=== PATIENT | female | born 1990 | race Caucasian/White ===

== ENCOUNTER → 2019-07-10 | Outpatient (CLI) | payer OTHER ==
[~2019-07-10] MED LIST: PENVK500 PO; PRENATAL TABLE1 EAC2 PO
[2019-07-12 00:09] LABS: CHLAMYDIA TRACHOMATIS, NAA Negative (Negative); NEISSERIA GONORRHOEAE, NAA Negative (Negative)
== END | disposition home or self-care (01) ==
LOC: LAB 11:56 → LAB SHORT 11:56
PROVIDERS: Obstetrics & Gynecology
DX: O26.891 Other specified pregnancy related conditions, first trimester (principal); R30.0 Dysuria
CPT/HCPCS: 87086; 87491; 87591

== ENCOUNTER 2019-07-16 20:21 | Inpatient (IN) | payer OTHER ==
[~2019-07-16] VITALS: Ht 162.6 cm; Wt 58.9 kg
[2019-07-16] MEDS ORDERED: PENVK500 PO (20:50)
[2019-07-16 21:20] LABS: Hematocrit 44.9 % (33.0-51.0); Hemoglobin 14.3 g/dL (11.5-16.0); Mean Corpuscular HGB 27.3 pg (26.0-34.0); Mean Corpuscular HGB Conc 31.8 g/dL (31.5-36.5); Mean Corpuscular Volume 86 fL (80-100); Mean Platelet Volume 9.1 fL (9.1-12.4); Platelet Count 175 K/mm3 (150-400); RDW Coefficient Variation 13.5 % (11.7-14.2); Red Blood Cell Count 5.23 M/mm3 (3.80-5.20); White Blood Cell Count 17.09 K/mm3 (4.00-11.30)
[2019-07-16 21:39] LABS: Alanine Aminotransfer (ALT/SGP 226 U/L (12-78); Albumin, Blood 3.7 g/dL (3.4-5.0); Albumin/Globulin Ratio 0.8 (0.8-1.8); Alk Phos 75 U/L (50-136); Anion Gap 9 mmol/L (6-16); Aspartate Aminotrans (AST/SGOT 86 U/L (12-37); Bilirubin, Total 0.4 mg/dL (0.1-1.0); Blood Urea Nitrogen 10 mg/dL (8-24); Bun/Creatinine Ratio 13.5 (12.0-20.0); CO2, Blood 24 mmol/L (21-32); Calcium, Blood 9.2 mg/dL (8.5-10.1); Chloride, Blood 104 mmol/L (98-108); Creatinine, Blood 0.74 mg/dL (0.40-1.00); Globulin, Blood 4.9 g/dL (2.2-4.0); Glomerular Filtration Rate >60 (60-); Glucose, Blood 102 mg/dL (70-99); Potassium, Blood 3.9 mmol/L (3.5-5.5); Sodium, Blood 137 mmol/L (136-145); Total Protein, Blood 8.6 g/dL (6.4-8.2)
[2019-07-16 21:45] LABS: BASOPHILS ABSOLUTE MAN 0.17 K/mm3 (0.00-0.23); BASOPHILS PERCENT MAN 1 % (0-2); EOSINOPHILS PERCENT MAN 0 % (0-6); LYMPHOCYTES % ATYPICAL MANUAL 21 % (0-0); LYMPHOCYTES ABSOLUTE MAN 11.96 K/mm3 (0.84-5.20); LYMPHOCYTES PERCENT MAN 49 % (21-46); MONOCYTES ABSOLUTE MAN 1.19 K/mm3 (0.16-1.47); MONOCYTES PERCENT MAN 7 % (4-13); NEUTROPHILS ABSOLUTE MAN 3.75 K/mm3 (1.96-9.15); SEG NEUTROPHILS PERCENT MAN 22 % (41-73); TOTAL CELLS COUNTED 100
[2019-07-17] MEDS ORDERED: PRENATAL TABLE1 EAC2 PO (00:27)
--- NOTE | 2019-07-17 00:31 | NUR ---
ADMISSION: PATIENT IS RECIEVED FROM ER VIA WHEEL CHAIR. ABLE TO AMB. TO BATHROOM WITH A STEADY GAIT. VS ARE STABLE, REPORTS THROAT AND MOUTH DISCOMFORT, DENIES NEED OF PAIN MEDICATION. LACTATED RINGERS AT 100 ML/HR IS STARTED. PTAIENT IS ORIENTED TO ROOM AND CALL [facility].
--- NOTE | 2019-07-17 06:40 | NUR ---
SHIFT SUMMARY: PATIENT HAS BEEN SLEEPING WITHOUT COMPLAINT OF PAIN OR NAUSEA. VS ARE STABLE, NO RESPIRATORY DISTRESS OR DUSPNEA OBSERVED IVF ARE INFUSING PER MD ORDER, PATIENT REMAINS NPO.
--- NOTE | 2019-07-17 07:30 | NUR ---
DR SLATER AT THE BEDSIDE CONTACT NUMBER RECIEVED [phone]. PT UNABLE TO SWALLOW HER OWN SALIVA. DR TOOK PICTURES TO SEND TO DR CASTILLO ENT. CONSULT PLACED FOR DR CASTILLO. DR SLATER MADE THE CALL TO THE ANSWERING SERVICE. RECIEVED A CALL FROM HER REQUESTING A CONSULT FOR THE HOSPITALIST SERVICE PT WOULD NEED IVF AND IV ABX. CONSULTED THE HOSPITALIST SERVICE DR CAMACHO NOW THE HOSPITALIST FOR THIS PT.
--- NOTE | 2019-07-17 08:29 | NUR ---
PATIENT DID NOT EAT BREAKFAST THIS SHIFT DUE TO BEING NPO AT THIS TIME.
--- NOTE | 2019-07-17 15:30 | NUR ---
STILL AWAITING DR CASTILLO TO COME AND SEE THE PT. PER DR SLATER SHE BELIEVES HE PLANS TO COME SEE THE PT. CALLED ENT OFFICE, OFFICE IS CLOSED ON SATURDAY. CALLED ANSWERING SERVICE AND REQUESTED THAT DR CASTILLO BE CONTACTED TO SEE IF HE PLANS TO COME SEE THE PT. CALLED BACK AND SPOKE TO COPY ROOM TECHNICIAN NINFA. CALLED DR SLATER. PER DR CASTILLO HE HAD COMMUNICATED WITH HER. DR SLATER STATED SHE IS DEFERING TO THE HOSPITALIST AND WILL BE AVAILABLE FOR OB NEEDS. CALLED DR CAMACHO TO UPDATE HIM AND PROVIDED CONTACT INFO FOR DR SLATER. PPN ORDERED, SPOKE TO DR CAMACHO ABOUT LR, OK TO DC LR ONCE PPN IS STARTED.
--- NOTE | 2019-07-17 18:41 | NUR ---
SHIFT SUMMARY- PER THE RECOMENDATION OF DIETARY PT WAS GIVEN SUCTION ORAL CARE SUPPLIES AND WAS ABLE TO BRUSH HER TEETH. PT HAS BEEN SPITTING HER SALIVA INTO EMESIS BAGS SHE CAN NOT SWALLOW IT. SWAPPED OUT TOOTHBRUSH FOR THE YONKER. PT NOW ABLE TO SUCTION. PT STATED HER NAUSEA IS BETTER WITH THE SUCTION IT SEEMS THAT SHE IS ABLE TO GET MORE OF THE THICK "GOOBERS" OUT, PT STATED THE THICK STUFF SEEMS TO BE MAKING HER GAG. PT HAS BEEN BLOWNIG HER NOSE AND STATED SHE HAS BEEN PRODUCING THICK GREEN SNOT. NOW ORDER FOR PPN RECIEVED AND STARTED. STOPPED FOR A SHORT TIME WHILE IV ABX INFUSED. IV ABX SHOULD BE COMPLETED AT SHIFT CHANGE. PT VITALS. HR HAS BEEN TACHY T/O THE DAY, PT HAS HAD A SLIGHT FEVER THE HIGH WAS 100.1. PT BROKE OUT IN A SWEAT AND WAS GIVEN A PARTIAL SPOUNGE BATH REDUCED BEDDING TO A SHEET TEMP WENT UP TO 100.6. WILL NEED TO CALL DR FOR TYLENOL SUPPOSITORY PT IS 8 WEEKS AND CAN NOT SWALLOW.
[2019-07-18 05:03] LABS: BASOPHILS ABSOLUTE AUTO 0.06 K/mm3 (0.00-0.23); BASOPHILS PERCENT AUTO 1 % (0-2); EOSINOPHILS PERCENT AUTO 0 % (0-6); Hematocrit 36.6 % (33.0-51.0); Hemoglobin 11.8 g/dL (11.5-16.0); Mean Corpuscular HGB 27.4 pg (26.0-34.0); Mean Corpuscular HGB Conc 32.2 g/dL (31.5-36.5); Mean Corpuscular Volume 85 fL (80-100); Mean Platelet Volume 8.8 fL (9.1-12.4); Platelet Count 133 K/mm3 (150-400); RDW Coefficient Variation 13.4 % (11.7-14.2); RDW Standard Deviation 42.1 fL (35.1-46.3); White Blood Cell Count 7.91 K/mm3 (4.00-11.30)
[2019-07-18 05:05] LABS: IMMATURE GRAN ABSOLUTE AUTO 0.02 K/mm3 (0.00-0.10); IMMATURE GRAN PERCENT AUTO 0 % (0-1); LYMPHOCYTES ABSOLUTE AUTO 4.73 K/mm3 (0.84-5.20); LYMPHOCYTES PERCENT AUTO 60 % (21-46); MONOCYTES ABSOLUTE AUTO 0.63 K/mm3 (0.16-1.47); MONOCYTES PERCENT AUTO 8 % (4-13); NEUTROPHILS ABSOLUTE AUTO 2.47 K/mm3 (1.96-9.15); NEUTROPHILS PERCENT AUTO 31 % (41-73)
[2019-07-18 05:24] LABS: Alanine Aminotransfer (ALT/SGP 124 U/L (12-78); Albumin, Blood 2.9 g/dL (3.4-5.0); Albumin/Globulin Ratio 0.7 (0.8-1.8); Alk Phos 50 U/L (50-136); Anion Gap 7 mmol/L (6-16); Aspartate Aminotrans (AST/SGOT 37 U/L (12-37); Bilirubin, Total 0.3 mg/dL (0.1-1.0); Blood Urea Nitrogen 9 mg/dL (8-24); Bun/Creatinine Ratio 14.9 (12.0-20.0); CO2, Blood 25 mmol/L (21-32); Calcium, Blood 7.9 mg/dL (8.5-10.1); Chloride, Blood 104 mmol/L (98-108); Glomerular Filtration Rate >60 (60-); Glucose, Blood 127 mg/dL (70-99); Magnesium, Blood 2.2 mg/dL (1.6-2.4); Phosphorus, Blood 2.7 mg/dL (2.5-4.9); Potassium, Blood 3.6 mmol/L (3.5-5.5); Sodium, Blood 136 mmol/L (136-145); Total Protein, Blood 6.9 g/dL (6.4-8.2); Triglycerides 148 mg/dL (30-140)
--- NOTE | 2019-07-18 06:55 | NUR ---
DIRECTOR PATIENT ACCOUNTING SUMMARY PT A/O X4, INDEPENDENT IN ROOM. PT STILL IS NOT ABLE TO SWALLOW OWN SALIVA. SUCTION BY BEDSIDE. VSS. NO ACUTE CHANGES. DENIES PAIN, SOB. SCD'S ORDERED AND IN PLACE. PT SWEATED THROUGH BED LINEN. ICE PACKS HAS BEEN PROVIDED THROUGHOUT THE NIGHT. PLEASANT AND COOPERATIVE.
[2019-07-18 11:09] LABS: EBV AB VCA, IGG 20.6 U/mL (0.0-17.9); EBV AB VCA, IGM >160.0 U/mL (0.0-35.9); EBV NUCLEAR ANTIGEN AB, IGG <18.0 U/mL (0.0-17.9)
--- NOTE | 2019-07-18 12:39 | NUR ---
PT IV INFILTRATED AREA SWOLLEN NOT RED; SWELLING HAS REDUCED SINCE DC. SPOKE TO DR FELIPE PT WILL BE STAYING IN THE HOSPITAL THROUGH SATURDAY PG MIGHT BE THE BEST ROUT PT HAS IV PPN AND IV ABX AND IS NOT ABLE TO SWALLOW. NEW ORDER FOR CEPACOL LOZENGE RECIEVED. ADMINISTERED ONE LOZENGE AND COACHED PT THROUGH SWALLOWING EVEN THOUGH IT IS PAINFUL TO SEE IF IT WOULD HELP. PT STATED THAT THE LOZENGE MADE IT BETTER. PT CURRENTLY ABLE TO SWALLOW SOME OF HER SALIVA. WILL CTM.
--- NOTE | 2019-07-18 16:30 | NUR ---
SHIFT SUMMARY- PT HAS HAD 2 CEPACOL LOZENGES SHE STATED THAT SHE CAN SWALLOW HER SALIVA NOW. MAY BE ABLE TO ADVANCE TO CLEAR LIQUIDS TOMORROW IF PT CONTINUES TO IMPROVE. PT CURRENTLY ON IV NUTRITION. PT STATED IT MADE HER ARM A LITTLE SORE. IV WENT BAD AND WAS REMOVED. A NEW POWER GLIDE WAS PLACED. PT STATES THAT HER ARM HURTS WITH THE INFUSION BUT IT IS TOLLERABLE. PG FLUSHES WELL AND IS OTHERWISE NOT UNCOMFORTABLE (PER PT). PT HAS DENIED ANY INCREASE IN DIFICULTY BREATHING AT THIS TIME. PT ON ROOM AIR SATS UPPER 90'S. TEMP TAKEN ORALLY AND LAST CHECK WAS 98.6. PT WAS A BIT FLUSHED AND SWEATING, TURNED DOWN THE ROOM TEMP AND REMOVED BLANKET. PROVIDED PT WITH ICEPACKS FOR HER COMFORT. TEMP HAS BEEN 98.6 WHEN THE PT CALLS TO TELL STAFF SHE FEELS EXTREMELY HOT. NO TEMP READINGS OVER 101. PT NO LONGER NEEDING SUCTION SHE CAN SWALLOW HER SALIVA AT THIS TIME.
[2019-07-19 06:13] LABS: Hematocrit 37.5 % (33.0-51.0); Hemoglobin 12.1 g/dL (11.5-16.0); Mean Corpuscular HGB 27.4 pg (26.0-34.0); Mean Corpuscular HGB Conc 32.3 g/dL (31.5-36.5); Mean Corpuscular Volume 85 fL (80-100); Mean Platelet Volume 9.6 fL (9.1-12.4); Platelet Count 124 K/mm3 (150-400); RDW Coefficient Variation 13.3 % (11.7-14.2); RDW Standard Deviation 41.6 fL (35.1-46.3); Red Blood Cell Count 4.41 M/mm3 (3.80-5.20); White Blood Cell Count 9.32 K/mm3 (4.00-11.30)
[2019-07-19 06:25] LABS: Magnesium, Blood 2.6 mg/dL (1.6-2.4); Phosphorus, Blood 4.1 mg/dL (2.5-4.9)
[2019-07-19 06:37] LABS: BASOPHILS PERCENT MAN 0 % (0-2); EOSINOPHILS PERCENT MAN 0 % (0-6); LYMPHOCYTES ABSOLUTE MAN 6.43 K/mm3 (0.84-5.20); LYMPHOCYTES PERCENT MAN 69 % (21-46); MONOCYTES ABSOLUTE MAN 0.55 K/mm3 (0.16-1.47); MONOCYTES PERCENT MAN 6 % (4-13); NEUTROPHILS ABSOLUTE MAN 2.33 K/mm3 (1.96-9.15); SEG NEUTROPHILS PERCENT MAN 25 % (41-73); TOTAL CELLS COUNTED 100
--- NOTE | 2019-07-19 07:30 | NUR ---
ASSUMED CARE OF PT- PT ALERT AND ORIENTED INDEPENDENT IN THE ROOM. AT THE START OF SHIFT PT STATED SEVERE NAUSEA, HER GOWN AND LINNENS WERE WET FROM SWEAT. MEDICATED WITH ZOFRAN PER EMAR. PT WAS ASSISTED WITH SET UP FOR A SHOWER, LINNENS CHANGED. LUNG SOUNDS A LITTLE COARSE AND PT HAS DIFFICULTY COUGHING TO CLEAR IT MEDICATED PT WHEN CEPACOL WAS AVAILABLE AND ENCOURAGED HER TO COUGH TO TRY TO CLEAR. SPOKE TO AND SHE IS AWARE. PT STATED SHE WAS ABLE TO TPIT OUT A LARGE CHUNK OF "STUFF" FROM THE BACK OF HER THROAT. COLORS HAVE CHANGED FROM BLACK AND GREEN TO GREEN AND YELLOW. PT VOICE STILL SEEMS VERY SQUEEZED BUT THROAT APPEARS A LITTLE LESS SWOLLEN. SPOKE TO , WILL CONTINUE TO ENCOURAGE THE PT TO COUGH, OK FOR PT TO HAVE A SPRITE TO USE WITH HER ORAL SWABS. PT HAS NO C/O PAIN OTHER THAN HER THROAT AND THAT IS WELL MANAGED WITH THE CEPACOL.
--- NOTE | 2019-07-19 07:45 | NUR ---
07/19/19 0600 RN PB LABWORK FROM [facility] WITH MUCH EFFORT. PT SLEPT THROUGH LAB DRAW AND MED. ADMINISTRATION. VITALS STABLE. MEDICATED SEVERAL TIMES FOR SORE THROAT WITH LOZENGES. SELF TO BATHROOM FOR VOIDINGS.
--- NOTE | 2019-07-19 14:15 | NUR ---
PT WALKED AROUND THE UNIT 2 TIMES THIS MORNING AFTER HAVING A SHOWER. PT CONTINUES TO HAVE HEAVY SWEATING THAT WILL SATURATE CLOTHING AND LINNENS. HER FAMILY BROUGHT IN A BOX CONTAINING THE PT PERSONAL LAP TOP AND SOME BOOKS FOR READING. PT HAS MANAGED TWO DIFFERENT SESSIONS OF COUGHING TO CLEAR, BUT HER COUGH IS WEAK AND NON-PRODUCTIVE AT THIS TIME.
--- NOTE | 2019-07-19 17:50 | NUR ---
SHIFT SUMMARY- PT ALERT, ORIENTED AND INDEPENDENT IN THE ROOM. PT HAS HAD NO ACUTE CHANGE T/O THE DAY. SEE PREVIOUS NOTES FOR ACTIVITY DETAILS. PT BEING TREATED WITH IV ABX Q6 AND PPN AT THIS TIME. PT SWALLOW HAS IMPROVED WITH Q4 USAGE OF CEPACOL. THROAT SEEMS A LITTLE LESS SWOLLEN THOUGH PT VOICE STILL SEEMS VERY SQUEEZED. PT DENIES ANY DISCOMFORT OTHER THAN HER THROAT. SPOUNGE BATH WAS DONE ONCE THIS AFTERNOON WITH A PARTIAL LINNEN CHANGE D/T PT SWEATS.
--- NOTE | 2019-07-20 03:38 | NUR ---
SUMMARY PT HAS BEEN RESTING QUIETLY WITH FEW INTERRUPTIONS. TOLERATING THROAT LOZENGES ABOUT EVERY 4 HRS TO SOOTHE THROAT SORENESS. TONSILS REMAIN SWOLLEN. IV PPN INFUSING AT 96 ML/HR AND RECEIVES IV ANTIBIOTICS ORDERED - SEE MAR FOR DETAILS. CALL LIGHT IN REACH.
[2019-07-20 04:44] LABS: Hematocrit 38.2 % (33.0-51.0); Hemoglobin 12.1 g/dL (11.5-16.0); Mean Corpuscular HGB 27.3 pg (26.0-34.0); Mean Corpuscular HGB Conc 31.7 g/dL (31.5-36.5); Mean Corpuscular Volume 86 fL (80-100); Mean Platelet Volume 9.1 fL (9.1-12.4); Platelet Count 132 K/mm3 (150-400); RDW Coefficient Variation 13.2 % (11.7-14.2); RDW Standard Deviation 42.5 fL (35.1-46.3); Red Blood Cell Count 4.43 M/mm3 (3.80-5.20); White Blood Cell Count 8.55 K/mm3 (4.00-11.30)
[2019-07-20 04:58] LABS: Magnesium, Blood 2.4 mg/dL (1.6-2.4); Phosphorus, Blood 4.4 mg/dL (2.5-4.9)
[2019-07-20 05:02] LABS: BAND PERCENT MAN 1 % (0-8); BASOPHILS PERCENT MAN 0 % (0-2); EOSINOPHILS PERCENT MAN 0 % (0-6); LYMPHOCYTES % ATYPICAL MANUAL 21 % (0-0); LYMPHOCYTES ABSOLUTE MAN 5.72 K/mm3 (0.84-5.20); LYMPHOCYTES PERCENT MAN 46 % (21-46); MONOCYTES ABSOLUTE MAN 0.51 K/mm3 (0.16-1.47); MONOCYTES PERCENT MAN 6 % (4-13); SEG NEUTROPHILS PERCENT MAN 26 % (41-73); TOTAL CELLS COUNTED 100
--- NOTE | 2019-07-20 17:28 | NUR ---
SUMMARY PT SITTING UP IN BED READING, PT HAS BEEN PLEASANT AND COOPERATIVE WITH CARE T/O THE DAY, PT WAS UP AND TOOK A SHOWER, AND SHE WAS UP AND WALKING IN THE HALLS, PT ABLE TO TOLERATE ICE CHIPS AND SMALL SIPS OF WATER TODAY, MAY BE ABLE TO ADVANCE TO CLEAR LIQUIDS TOMORROW, VSS, WILL CONT TO MONITOR
--- NOTE | 2019-07-20 22:17 | NUR ---
07/20/192214 SET UP FOR SHOWER THE MOIST STEAM SOOTHES HER THROAT. RECONNECTED BACK TO IV FLUIDS WHEN DONE.
--- NOTE | 2019-07-21 05:11 | NUR ---
07/21/19 0515 PT WAS UP TO THE BATHROOM FOR VOIDING. OCC. SPITTING UP "MUCOUS" BUT GENERALLY FEELING BETTER. VITALS REMAIN STABLE. FELT MUCH BETTER AFTER WARM SHOWER EARLIER IN SHIFT THE MOISTURE SOOTHED HER THROAT. TAKING SIPS OF WATER THROUGHOUT SHIFT. SHE STATES SWALLOWING IS BETTER TODAY.
--- NOTE | 2019-07-21 17:13 | NUR ---
PT IS A/OX3, PLEASANT AND COOPERATIVE, THE PT IS UP WOITH MINIMAL ASSIST, THE PT WAS STARTED ON CLEAR LIQUID THIS AM AND TOLERATED WELL, THEN ADVANCED TO FULL LIQUID DIET AND SO FAR HAS TOLERATED WELL WITH SOME MILD PAIN IN HER THROAT, THE PT REPORTED HAVING SOME LOOSE STOOL THIS AM NO OTHER REPORTS SINCE THEN, THE PT WAS UP AND SHOWERED TODAY, CALL LIGHT IN REACH, WILL CONTINUE TO MONITOR FOR CHANGES
--- NOTE | 2019-07-22 05:04 | NUR ---
SHIFT SUMMARY- PT. HAD A RESTFUL NIGHT. NO APPARENT DISTRESS NOTED. A&O, INDPENDENT IN ROOM AND AMBULATES IN THE HALLWAY. PT. TOLERATING IV NUTRITION WELL, DENIED ANY C/O PAIN OR DISCOMFORT T/O THE SHIFT. PT. STATES STILL HAS SOME TROUBLE SWALLOWING AND IS TAKING SMALL SIPS OF WATER AT A TIME, WAS ABLE TO TOLERATE FULL LIQUID DIET. PT. SHOWERED DURING THE NIGHT AND SLEPT THE REST OF THE SHIFT. CALL LIGHT WITHIN REACH AND SIDE RAILS UP X2. WILL CONT TO MONITOR.
[2019-07-22 08:09] LABS: Hematocrit 38.7 % (33.0-51.0); Hemoglobin 12.2 g/dL (11.5-16.0); Mean Corpuscular HGB 27.1 pg (26.0-34.0); Mean Corpuscular HGB Conc 31.5 g/dL (31.5-36.5); Mean Corpuscular Volume 86 fL (80-100); Mean Platelet Volume 9.3 fL (9.1-12.4); Platelet Count 153 K/mm3 (150-400); RDW Coefficient Variation 13.2 % (11.7-14.2); RDW Standard Deviation 41.4 fL (35.1-46.3); White Blood Cell Count 6.93 K/mm3 (4.00-11.30)
[2019-07-22 08:33] LABS: BASOPHILS ABSOLUTE MAN 0.13 K/mm3 (0.00-0.23); BASOPHILS PERCENT MAN 2 % (0-2); EOSINOPHILS PERCENT MAN 0 % (0-6); LYMPHOCYTES ABSOLUTE MAN 4.08 K/mm3 (0.84-5.20); LYMPHOCYTES PERCENT MAN 59 % (21-46); MONOCYTES ABSOLUTE MAN 0.83 K/mm3 (0.16-1.47); MONOCYTES PERCENT MAN 12 % (4-13); NEUTROPHILS ABSOLUTE MAN 1.87 K/mm3 (1.96-9.15); SEG NEUTROPHILS PERCENT MAN 27 % (41-73); TOTAL CELLS COUNTED 100
[2019-07-22 08:38] LABS: Alanine Aminotransfer (ALT/SGP 214 U/L (12-78); Albumin/Globulin Ratio 0.6 (0.8-1.8); Alk Phos 96 U/L (50-136); Anion Gap 5 mmol/L (6-16); Aspartate Aminotrans (AST/SGOT 114 U/L (12-37); Bilirubin, Total 0.3 mg/dL (0.1-1.0); Blood Urea Nitrogen 13 mg/dL (8-24); Bun/Creatinine Ratio 23.6 (12.0-20.0); CO2, Blood 29 mmol/L (21-32); Calcium, Blood 8.4 mg/dL (8.5-10.1); Chloride, Blood 102 mmol/L (98-108); Creatinine, Blood 0.55 mg/dL (0.40-1.00); Globulin, Blood 4.8 g/dL (2.2-4.0); Glomerular Filtration Rate >60 (60-); Glucose, Blood 104 mg/dL (70-99); Magnesium, Blood 2.3 mg/dL (1.6-2.4); Sodium, Blood 136 mmol/L (136-145); Total Protein, Blood 7.8 g/dL (6.4-8.2)
[2019-07-22 12:34] LABS: BASOPHILS ABSOLUTE AUTO 0.04 K/mm3 (0.00-0.23); BASOPHILS PERCENT AUTO 1 % (0-2); EOSINOPHILS PERCENT AUTO 0 % (0-6); Hematocrit 38.3 % (33.0-51.0); Hemoglobin 12.2 g/dL (11.5-16.0); Mean Corpuscular HGB 27.3 pg (26.0-34.0); Mean Corpuscular HGB Conc 31.9 g/dL (31.5-36.5); Mean Corpuscular Volume 86 fL (80-100); Mean Platelet Volume 9.4 fL (9.1-12.4); Platelet Count 146 K/mm3 (150-400); Red Blood Cell Count 4.47 M/mm3 (3.80-5.20); White Blood Cell Count 6.71 K/mm3 (4.00-11.30)
[2019-07-22 13:03] LABS: IMMATURE GRAN ABSOLUTE AUTO 0.03 K/mm3 (0.00-0.10); IMMATURE GRAN PERCENT AUTO 0 % (0-1); LYMPHOCYTES ABSOLUTE AUTO 4.51 K/mm3 (0.84-5.20); LYMPHOCYTES PERCENT AUTO 67 % (21-46); MONOCYTES ABSOLUTE AUTO 0.55 K/mm3 (0.16-1.47); MONOCYTES PERCENT AUTO 8 % (4-13); NEUTROPHILS ABSOLUTE AUTO 1.58 K/mm3 (1.96-9.15); NEUTROPHILS PERCENT AUTO 24 % (41-73)
--- NOTE | 2019-07-22 18:14 | NUR ---
PT IS A/OX3,PLEASANT AND COOPERATIVE, THE PT IS UP IND IN HER ROOM, THE PT APPEARS TO BE BREATHING EASILY ON RA, THE PTS DIET WAS ADVANCED TO SOFT BITE SIZE THIS EVENING FOR DINNER, PT WAS TEARFUL TODAY AND DIAPOINTED THAT SHE WAS NOT ABLE TO BE DISCHARGED, ENCOURAGMENT WAS GIVEN, PT WAS UP AMBULATING THROUGH THE WHITE, CALL LIGHT IN REACH
--- NOTE | 2019-07-23 04:47 | NUR ---
SHIFT SUMMARY PATIENT HAD NO ACUTE CHANGES OBSERVED. AXOX 4 AND INDEPENDENT IN ROOM. POWERGLIDE MADAN INTACT. IV ABX'S INFUSED. VSS/AFEBRILE. DENIES PAIN, SOB, AND N/V. REPORTS SHE IS S[age] WEEKS . COOPERATIVE WITH CARE. CALL LIGHT IN REACH. BED IN LOWEST POSITION. WILL CONTINUE TO MONITOR UNTIL DAY SHIFT NURSE ASSUMES CARE.
[2019-07-23 06:37] LABS: Alanine Aminotransfer (ALT/SGP 205 U/L (12-78); Albumin, Blood 2.9 g/dL (3.4-5.0); Albumin/Globulin Ratio 0.6 (0.8-1.8); Alk Phos 95 U/L (50-136); Anion Gap 3 mmol/L (6-16); Aspartate Aminotrans (AST/SGOT 85 U/L (12-37); Bilirubin, Total 0.3 mg/dL (0.1-1.0); Blood Urea Nitrogen 14 mg/dL (8-24); Bun/Creatinine Ratio 21.4 (12.0-20.0); CO2, Blood 30 mmol/L (21-32); Calcium, Blood 8.6 mg/dL (8.5-10.1); Chloride, Blood 103 mmol/L (98-108); Creatinine, Blood 0.66 mg/dL (0.40-1.00); Globulin, Blood 4.8 g/dL (2.2-4.0); Glomerular Filtration Rate >60 (60-); Glucose, Blood 90 mg/dL (70-99); Potassium, Blood 3.7 mmol/L (3.5-5.5); Sodium, Blood 136 mmol/L (136-145); Total Protein, Blood 7.7 g/dL (6.4-8.2)
--- NOTE | 2019-07-23 12:58 | NUR ---
DISCHARGE DISCHARGE INSTRUCTIONS, MEDICATION LIST AND FOLLOW UP APPOINTMENT REVIEWED WITH PT. QUESTIONS/CONCERNS ANSWERED. PT VERBALLY INDICATED UNDERSTANDING OF ALL INSTRUCTIONS RECEIVED. PT ESCORTED OUT BY [facility]
== END 2019-07-23 12:55 | disposition home or self-care (01) | DRG 833 ==
LOC: ER 20:21 → MEDS 20:22 → ENPENDDIS 07-23 10:00 → MEDS 07-23 12:55
PROVIDERS: Internal Medicine; Nurse Practitioner; ADMIT Obstetrics & Gynecology
DX: O98.511 Other viral diseases complicating pregnancy, first trimester (principal); B27.90 Infectious mononucleosis, unspecified without complication; Z3A.01 Less than 8 weeks gestation of pregnancy; O99.281 Endocrine, nutritional and metabolic diseases complicating pregnancy, first trimester; E86.0 Dehydration
CPT/HCPCS: 36415; 80053; 82947; 83735; 84100; 84478; 85025; 85651; 86308; 86664; 86665; 87081; 87430; 93005; 93010; 96361; 96374; 99285-25; C1751; G0378; J0295; J1100; J2405; J7030; J7040; J7120; J7512

== ENCOUNTER → 2019-08-10 | Outpatient (CLI) | payer OTHER | END | disposition home or self-care (01) | LOC: LAB SHORT 19:19 → LAB 19:19 | PROVIDERS: Obstetrics & Gynecology | DX: Z34.01 Encounter for supervision of normal first pregnancy, first trimester (principal) | CPT/HCPCS: G0123 ==

== ENCOUNTER → 2020-02-15 | Outpatient (CLI) | payer OTHER ==
[~2020-02-15] MED LIST changes: +IBUP800 PO; +Percocet 5-3251 EACH PO
== END | disposition home or self-care (01) ==
LOC: LAB 15:40 → LAB SHORT 15:40
DX: O26.93 Pregnancy related conditions, unspecified, third trimester (principal); Z3A.36 36 weeks gestation of pregnancy
CPT/HCPCS: 87081; 87150

== ENCOUNTER 2020-03-02 14:15 | Inpatient (IN) | payer OTHER ==
[~2020-03-02] VITALS: Ht 162.6 cm; Wt 72.7 kg
[~2020-03-02 14:15] MED LIST changes: -IBUP800 PO; -Percocet 5-3251 EACH PO
[2020-03-04 07:18] LABS: BASOPHILS ABSOLUTE AUTO 0.03 K/mm3 (0.00-0.23); BASOPHILS PERCENT AUTO 0 % (0-2); EOSINOPHILS ABSOLUTE AUTO 0.02 K/mm3 (0.00-0.68); EOSINOPHILS PERCENT AUTO 0 % (0-6); Hematocrit 35.3 % (33.0-51.0); Hemoglobin 11.2 g/dL (11.5-16.0); IMMATURE GRAN ABSOLUTE AUTO 0.04 K/mm3 (0.00-0.10); IMMATURE GRAN PERCENT AUTO 1 % (0-1); LYMPHOCYTES ABSOLUTE AUTO 2.73 K/mm3 (0.84-5.20); LYMPHOCYTES PERCENT AUTO 35 % (21-46); MONOCYTES ABSOLUTE AUTO 0.65 K/mm3 (0.16-1.47); MONOCYTES PERCENT AUTO 8 % (4-13); Mean Corpuscular HGB 27.6 pg (26.0-34.0); Mean Corpuscular HGB Conc 31.7 g/dL (31.5-36.5); Mean Corpuscular Volume 87 fL (80-100); Mean Platelet Volume 10.1 fL (9.1-12.4); NEUTROPHILS ABSOLUTE AUTO 4.44 K/mm3 (1.96-9.15); NEUTROPHILS PERCENT AUTO 56 % (41-73); Platelet Count 221 K/mm3 (150-400); RDW Coefficient Variation 12.6 % (11.7-14.2); RDW Standard Deviation 40.1 fL (35.1-46.3); Red Blood Cell Count 4.06 M/mm3 (3.80-5.20); White Blood Cell Count 7.91 K/mm3 (4.00-11.30)
[2020-03-04 08:22] LABS: PCO2 Cord - Arterial 47.2 mmHg (40-50); pH Cord - Arterial 7.28 (7.28-7.35)
[2020-03-04 08:23] LABS: PO2 Cord - Arterial < 16 mmHg (16-20)
--- NOTE | 2020-03-04 08:25 | NUR ---
03/04/20 0825 Mehnaz Sims DELIVERY OF VIABLE FEMALE INFANT AT 0758. APGARS 9/9. WEIGHT 2935 GMS. PLACENTA DELIVERED COMPLETE. CORD SEGMENT SENT WITH RT. CORD BLOOD SAMPLE SENT WITH BABY'S RN.
[2020-03-04 08:26] LABS: PCO2 Cord - Venous 39.2 mmHg (40-50); PO2 Cord - Venous 20.6 mmHg (28-32); pH Umbilical Cord - Venous 7.37 (7.26-7.35)
--- NOTE | 2020-03-04 11:30 | NUR ---
ASSUMED PT CARE, PT RESTING IN BED, DECLINES ANYTHING FOR PAIN. WILL CALL IF NEEDED.
--- NOTE | 2020-03-04 18:57 | NUR ---
REPORT TO ONCOMING SHIFT, NO ACUTE CHANGES.
[2020-03-05 05:48] LABS: BASOPHILS ABSOLUTE AUTO 0.02 K/mm3 (0.00-0.23); BASOPHILS PERCENT AUTO 0 % (0-2); EOSINOPHILS ABSOLUTE AUTO 0.02 K/mm3 (0.00-0.68); EOSINOPHILS PERCENT AUTO 0 % (0-6); Hematocrit 32.6 % (33.0-51.0); Hemoglobin 10.4 g/dL (11.5-16.0); IMMATURE GRAN ABSOLUTE AUTO 0.03 K/mm3 (0.00-0.10); IMMATURE GRAN PERCENT AUTO 0 % (0-1); LYMPHOCYTES ABSOLUTE AUTO 2.08 K/mm3 (0.84-5.20); LYMPHOCYTES PERCENT AUTO 27 % (21-46); MONOCYTES ABSOLUTE AUTO 0.62 K/mm3 (0.16-1.47); MONOCYTES PERCENT AUTO 8 % (4-13); Mean Corpuscular HGB 28.1 pg (26.0-34.0); Mean Corpuscular HGB Conc 31.9 g/dL (31.5-36.5); Mean Corpuscular Volume 88 fL (80-100); Mean Platelet Volume 9.8 fL (9.1-12.4); NEUTROPHILS ABSOLUTE AUTO 5.06 K/mm3 (1.96-9.15); NEUTROPHILS PERCENT AUTO 65 % (41-73); Platelet Count 194 K/mm3 (150-400); RDW Coefficient Variation 12.8 % (11.7-14.2); RDW Standard Deviation 40.7 fL (35.1-46.3); White Blood Cell Count 7.83 K/mm3 (4.00-11.30)
--- NOTE | 2020-03-05 07:20 | NUR ---
PT IN BED, HAS BEEN UP TO VOID THIS AM. WEI WELL. DISCUSSED PLAN OF CARE, WORKING ON FEEDING AND PAPERWORK FOR DC TOMORROW. PARENTS LOVING TOWARDS NB.
--- NOTE | 2020-03-05 14:14 | NUR ---
ROUNDING. MOM REPORTS FEEDING IS GOING WELL AND HAS NO QUESTIONS.
--- NOTE | 2020-03-05 19:33 | NUR ---
REPORT TO ONCOMING SHIFT. PT DOING WELL. NO ACUTE CHANGES.
[2020-03-05] MEDS ORDERED: Percocet 5-3251 EACH PO (19:43)
[2020-03-05] MEDS ORDERED: IBUP800 PO (19:43)
== END 2020-03-06 12:50 | disposition home or self-care (01) | DRG 788 ==
LOC: BC 03-04 06:33
PROVIDERS: ADMIT Obstetrics & Gynecology
PROC: 10D00Z1 Extraction of Products of Conception, Low, Open Approach (ICD-10-PCS; principal; 2020-03-04 07:30)
DX: O32.1XX0 Maternal care for breech presentation, not applicable or unspecified (principal); Z37.0 Single live birth; Z3A.39 39 weeks gestation of pregnancy
CPT/HCPCS: 36415; 82803; 85025; 86850; 86900; 86901; A9270; J0694; J1885; J2405; J2590; J2765; J7120

== ENCOUNTER → 2020-03-09 | Outpatient (CLI) | payer OTHER ==
[~2020-03-09] MED LIST changes: +IBUP800 PO; +Percocet 5-3251 EACH PO
== END | disposition home or self-care (01) ==
LOC: LAB 16:07
DX: R30.0 Dysuria (principal)
CPT/HCPCS: 87086

== ENCOUNTER 2021-01-25 06:13 | Day surgery (SDC) | payer OTHER ==
[~2021-01-25] VITALS: Ht 162.6 cm; Wt 60.0 kg
[~2021-01-25 06:13] MED LIST changes: +AMOCLA875 PO
--- NOTE | 2021-01-25 07:08 | NUR ---
Ambulatory in [facility] warming gown applied. History, Chart, Medications and Allergies reviewed before start of procedure.Lungs clear T/O to Auscultation. Patient confirms NPO status and agrees with scheduled surgery. Pre-Op teaching done. Pt verbalizes understanding. Patient States Post-Procedure ride home has been arranged.
--- NOTE | 2021-01-25 10:13 | NUR ---
Patient up to Ambulate independently. Gait steady. Elvia Paws warming gown applied. Discharge instructions reviewed with patient. Patient verbalizes understanding. Copy given to patient to take home.Lungs clear T/O to Auscultation. Patient States Post-Procedure ride home has been arranged.
== END 2021-01-25 10:44 | disposition home or self-care (01) ==
LOC: ORSCMMR 06:13 → ORD 09:00 → ORSCMMR 09:00 → ORD 02-13 07:30
PROVIDERS: Surgery
PROC: 0HX8XZZ Transfer Buttock Skin, External Approach (ICD-10-PCS; principal; 2021-01-25 07:30)
PROC: 0JB90ZZ Excision of Buttock Subcutaneous Tissue and Fascia, Open Approach (ICD-10-PCS; principal; 2021-01-25 07:30)
DX: L05.91 Pilonidal cyst without abscess (principal)
CPT/HCPCS: A9270; J0295; J1100; J1885; J2250; J2405; J2704; J3010; J7120

== ENCOUNTER 2023-04-07 23:28 | Emergency (ER) | payer OTHER ==
[~2023-04-07] VITALS: Ht 165.1 cm; Wt 49.9 kg
[2023-04-08 01:58] LABS: BASOPHILS ABSOLUTE AUTO 0.01 K/mm3 (0.00-0.23); BASOPHILS PERCENT AUTO 0 % (0-2); EOSINOPHILS PERCENT AUTO 0 % (0-6); Hematocrit 41.1 % (33.0-51.0); Hemoglobin 13.3 g/dL (11.5-16.0); IMMATURE GRAN ABSOLUTE AUTO 0.02 K/mm3 (0.00-0.10); IMMATURE GRAN PERCENT AUTO 0 % (0-1); LYMPHOCYTES ABSOLUTE AUTO 0.89 K/mm3 (0.84-5.20); LYMPHOCYTES PERCENT AUTO 17 % (21-46); MONOCYTES ABSOLUTE AUTO 0.14 K/mm3 (0.16-1.47); MONOCYTES PERCENT AUTO 3 % (4-13); Mean Corpuscular HGB 27.8 pg (26.0-34.0); Mean Corpuscular HGB Conc 32.4 g/dL (31.5-36.5); Mean Corpuscular Volume 86 fL (80-100); Mean Platelet Volume 9.9 fL (9.1-12.4); NEUTROPHILS ABSOLUTE AUTO 4.31 K/mm3 (1.96-9.15); NEUTROPHILS PERCENT AUTO 80 % (41-73); Platelet Count 183 K/mm3 (150-400); RDW Coefficient Variation 13.2 % (11.7-14.2); RDW Standard Deviation 41.5 fL (35.1-46.3); Red Blood Cell Count 4.78 M/mm3 (3.80-5.20); White Blood Cell Count 5.37 K/mm3 (4.00-11.30)
[2023-04-08 02:11] LABS: Albumin, Blood 4.3 g/dL (3.4-5.0); Albumin/Globulin Ratio 1.3 (0.8-1.8); Bilirubin, Total 0.4 mg/dL (0.1-1.0); Bun/Creatinine Ratio 25.8 (12.0-20.0); Calcium, Blood 8.9 mg/dL (8.5-10.1); Creatinine, Blood 0.7 mg/dL (0.40-1.00); Globulin, Blood 3.4 g/dL (2.2-4.0); Total Protein, Blood 7.7 g/dL (6.4-8.2)
[2023-04-08 02:48] LABS: U Amphetamine Screen Not Detected; U Barbituate Screen Not Detected; U Benzodiazapine Screen Not Detected; U Buprenorphine Screen Not Detected; U Cannabinoids Screen DETECTED; U Cocaine Screen DETECTED; U Methadone Screen Not Detected; U Methamphetamine Screen Not Detected; U Opiates Screen Not Detected; U Oxycodone Screen Not Detected; U Phencyclidine Screen Not Detected
[2023-04-08] MEDS ORDERED: ONDA4ODT MM (02:58)
[2023-04-08 03:32] VITALS: BP 109/63
== END 2023-04-08 03:36 | disposition home or self-care (01) ==
LOC: ER 23:28
PROVIDERS: Student in an Organized Health Care Education/Training Program
DX: F10.129 Alcohol abuse with intoxication, unspecified (principal); F14.10 Cocaine abuse, uncomplicated; F12.10 Cannabis abuse, uncomplicated; Z79.899 Other long term (current) drug therapy; Z91.018 Allergy to other foods
CPT/HCPCS: 80053; 83690; 84703; 85025; 99284; A9270

== ENCOUNTER 2024-03-25 12:49 | Emergency (ER) | payer OTHER ==
[~2024-03-25] VITALS: Ht 162.6 cm; Wt 61.2 kg
[~2024-03-25 12:49] MED LIST changes: +ONDA4ODT MM
[2024-03-25] MEDS ORDERED: Ondansetron 4 MG SoluTab SL ONE (15:50)
[2024-03-25] MEDS ORDERED: Ketorolac Tromethamine 30mg Vial IM ONE (15:50)
[2024-03-25] MEDS ORDERED: IBUP600 PO (16:06)
[2024-03-25] MEDS ORDERED: CYCL10 PO (16:06)
[2024-03-25 16:16] VITALS: BP 117/63
== END 2024-03-25 16:19 | disposition home or self-care (01) ==
LOC: ER 12:49
DX: S13.4XXA Sprain of ligaments of cervical spine, initial encounter (principal); S20.212A Contusion of left front wall of thorax, initial encounter; V43.52XA Car driver injured in collision with other type car in traffic accident, initial encounter; Z88.8 Allergy status to other drugs, medicaments and biological substances
CPT/HCPCS: 96372; 99283-25; A9270; J1885